=== PATIENT | female | born 1940 | race Caucasian/White ===

== ENCOUNTER → 2017-07-14 | Outpatient (CLI) | payer OTHER | LOC: FIMAGING 12:49 | PROVIDERS: ATTEND Physical Medicine & Rehabilitation | DX: M50.321 Other cervical disc degeneration at C4-C5 level (principal); M46.92 Unspecified inflammatory spondylopathy, cervical region; M48.02 Spinal stenosis, cervical region; M47.812 Spondylosis without myelopathy or radiculopathy, cervical region ==

== ENCOUNTER → 2017-08-17 | Outpatient (CLI) | payer OTHER | LOC: FIMAGING 10:01 | PROVIDERS: ATTEND Nurse Practitioner | DX: S12.001A Unspecified nondisplaced fracture of first cervical vertebra, initial encounter for closed fracture (principal); M50.31 Other cervical disc degeneration, high cervical region; M46.92 Unspecified inflammatory spondylopathy, cervical region; M48.02 Spinal stenosis, cervical region; M46.93 Unspecified inflammatory spondylopathy, cervicothoracic region ==

== ENCOUNTER → 2017-12-22 | Outpatient (CLI) | payer OTHER | LOC: FIMAGING 15:01 | PROVIDERS: ATTEND Nurse Practitioner | DX: Z98.1 Arthrodesis status (principal); M43.17 Spondylolisthesis, lumbosacral region; M48.07 Spinal stenosis, lumbosacral region; M51.87 Other intervertebral disc disorders, lumbosacral region ==

== ENCOUNTER 2018-05-09 18:44 | Observation (INO) | payer OTHER ==
--- NOTE | 2018-05-09 18:58 | EDPHY ---
HPI/HX/ROS/PE/MDM Narrative: CHIEF COMPLAINT: Back pain HPI: The patient is a 77 y/o female arriving from the [facility] complaining of lower back pain worse on the left side onset today. 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 She says she had a more intense Pilates training session last week followed by stair exercises and thinks her pain may be related to this. She tried a lidocaine patch without improvement. She denies urinary symptoms, vomiting, cough, fever, diarrhea. History is limited as patient is quite agitated and unwilling to cooperate in most of the history. REVIEW OF SYSTEMS: A comprehensive 10 system review of systems is otherwise negative aside from elements mentioned in the history of present illness. PMH: Basal ganglia hemorrhage with aphasia and dysphasia, Josy syndrome, hypertension, anxiety, depression, thoracic aortic aneurysm with aortic regurgitation, PEG tube, aspiration pneumonia Prior medical records reviewed including admission 07/19/14 for Josy syndrome. SOCIAL HISTORY: Lives at the [facility]. Retired. Single. PHYSICAL EXAM: General:Patient is alert, agitated. ENT:Eyes are normal to inspection. ENT inspection normal. Neck: Normal inspection. Full range of motion. Respiratory:No respiratory distress. Breath sounds normal bilaterally. Cardiovascular: Regular rate and rhythm. Strong peripheral pulses. Normal cap refill. Abdomen:The abdomen is nontender to palpation. There are no peritoneal signs. Back: Normal to inspection. No tenderness to palpation. Skin: Normal color. No rash. Warm and dry. Extremities: Normal appearance. Full range of motion. Neuro: Oriented x3. Normal motor function. Normal sensory function. ED Course: This is a hostile and rude 77 y/o female with a history of a hemorrhage basal ganglia stroke and Josy syndrome who presents with lower back pain worse on the left side in the setting of strenuous work out last week. Exam is unremarkable. Plan for lumbar spine x-ray and UA. Patient has refused UA, x-ray, and pain mediation. Patient consented to lumbar spine x-ray, which showed degenerative changes, nothing acute. RN has contacted every number listed under the patient's emergency contacts and has been unable to reach anyone. The patient is continuing to refuse any interventions, but also does not want to go home. Reassessed patient and discussed options. She says she can't get up out of bed and cannot return home. She wants to be admitted to the hospital. She consents to an IV for blood work. She has still be unwilling to provide a urine sample. Spoke with hospitalist service. Dr. Bender accepts admission. MDM: This was a challenging patient encounter. The patient presents with low back pain, but has been very hostile to myself and staff, not letting us do really any testing other than an X-ray and not complying with detailed exam or history. Her somewhat unusual affect makes me wonder if this is an acute change in mental status. Unfortunately, we have been unable to contact any of her listed next of kin or staff at the [facility] to determine baseline. It is unclear to me if patient even has decisional capacity. As such , patient will need to be admitted overnight for pain control and to figure out her social situation. - Data Points Imaging Results: Imaging Impressions Lumbar Spine X-Ray 05/09/18 19:09 Impression: 1. Postoperative features following arthrodesis at L4-S1, unchanged from 2017, with accompanying degenerative features, as-detailed. There does not appear to be any evidence of hardware loosening. 2. Advanced degenerative change involving the sacroiliac joints. Imaging: I viewed and interpreted images myself Laboratory Results: Laboratory Results 05/09/18 22:05 05/09/18 05/09/18 22:05 22:05 WBC 12.72 10^3/uL H 10^3/uL (3.80-9.50) RBC 4.72 10^6/uL 10^6/uL (4.18-5.33) Hgb 14.3 g/dL g/dL (12.6-16.3) Hct 42.9 % % (38.0-47.0) MCV 90.9 fL fL (81.5-99.8) MCH 30.3 pg pg (27.9-34.1) MCHC 33.3 g/dL g/dL (32.4-36.7) RDW 13.0 % % (11.5-15.2) Plt Count 210 10^3/uL 10^3/uL (150-400) MPV 10.9 fL fL (8.7-11.7) Neut % (Auto) Pending Lymph % (Auto) Pending [place] % (Auto) Pending Eos % (Auto) Pending Baso % (Auto) Pending Nucleat RBC Rel Count Pending Absolute Neuts (auto) Pending Absolute Lymphs (auto) Pending Absolute Monos (auto) Pending Absolute Eos (auto) Pending Absolute Basos (auto) Pending Absolute Nucleated RBC Pending Immature Gran % Pending Immature Gran # Pending Platelet Estimate Pending Sodium Pending Potassium Pending Chloride Pending Carbon Dioxide Pending Anion Gap Pending BUN Pending Creatinine Pending Estimated GFR Pending Glucose Pending Calcium Pending General Time Seen by Provider: 05/09/18 18:51 Initial Vital Signs: Initial Vital Signs Temperature (C) 37.0 C 05/09/18 18:48 Heart Rate 93 05/09/18 18:48 Respiratory Rate 16 05/09/18 18:48 Blood Pressure 113/53 L 05/09/18 18:48 O2 Sat (%) 93 05/09/18 18:48 O2 Delivery Mode Room Air Allergies/Adverse Reactions: hylan G-F 20 [From Synvisc] Allergy (Intermediate, Verified 12/12/13 08:36) SWELLING NSAIDS (Non-Steroidal Anti-Inflamma [Nsaids] Allergy (Intermediate, Verified 09/22 08:36) ULCERS latex [Latex] Allergy (Mild, Verified 12/12/13 08:36) Rash desvenlafaxine succinate [From Pristiq] Allergy (Unverified 05/09/18 18:55) tizanidine HCl [From Zanaflex] Allergy (Verified 12/12/13 08:36) Home Medications: Medication Instructions Recorded Dorzolamide 2% [Trusopt 2% (*)] 1 drops OP DAILY 02/03/14 Losartan Potassium [Cozaar] 100 mg PO DAILY 02/03/14 Metoprolol Tartrate [Lopressor 25 25 mg PO BID 02/03/14 mg (*)] Timolol 0.5% [TIMOPTIC 0.5% (*)] 1 drops EACHEYE BID 02/03/14 Venlafaxine Xr [Effexor Xr 75MG 75 mg PO DAILY 02/03/14 (*)] Acetaminophen [Tylenol 325mg (*)] 650 mg PO Q4 PRN 07/20/14 Latanoprost 0.005% [Xalatan 0.005% 1 drops EACHEYE HS #0 opht.btl 07/24/14 (*)] Acetaminophen [Tylenol ES 500 mg 1,000 mg PO Q8H PRN #30 tab 05/10/18 (*)] Gabapentin [Neurontin 300 MG (*)] 300 mg PO DAILY 05/10/18 Gabapentin [Neurontin 300 MG (*)] 600 mg PO HS 05/10/18 Ibuprofen [Motrin (*)] 400 mg PO Q6HRS PRN #60 tab 05/10/18 Melatonin [Melatonin 5 mg] 5 mg PO HS PRN 05/10/18 Methylphenidate HCl [Ritalin 5mg 5 mg PO DAILY 05/10/18 (*)] Nitrofurantoin Monohyd/M-Cryst 100 mg PO BID 05/10/18 [Macrobid 100 mg Capsule] Omeprazole 20 mg PO DAILY 05/10/18 amLODIPine BESYLATE [Norvasc 5 mg 5 mg PO DAILY 05/10/18 (*)] Departure - Departure Disposition: [facility] Inpatient Acute Clinical Impression: Back pain Qualifiers: Back pain location: low back pain Chronicity: acute Back pain laterality: left Sciatica presence: unspecified whether sciatica present Qualified Code(s): M54.5 - Low back pain Condition: Fair Report Scribed for: Delbert Trujillo Report Scribed by: Yumiko Sams Date of Report: 05/09/18 Time of Report: 19:01 Physician Review and Approval Statement: Portions of this note were transcribed by an ED scribe. I personally performed the history, physical exam, and medical decision making; and confirm the accuracy of the information in the transcribed note.
[2018-05-09 22:27] LABS: PLATELET COUNT 210 10^3/uL (150-400)
[2018-05-09] MEDS ORDERED: ONDANSETRON 4 MG/2 ML VIAL IVP PRN (22:44)
[2018-05-09] MEDS ORDERED: oxyCODONE IR 5 MG TAB PO PRN (22:44)
[2018-05-09] MEDS ORDERED: ONDANSETRON DISINTEGRATING 4 MG TAB PO PRN (22:44)
[2018-05-09] MEDS ORDERED: NITROFURANTOIN MACROBID 100 MG CAP PO SCH (23:45)
[2018-05-10] MEDS: IBUPROFEN 200 MG TAB PO PRN ×2 (00:15→09:39)
[2018-05-10] MEDS: NITROFURANTOIN MACROBID 100 MG CAP PO SCH ×2 (00:15→09:40)
--- NOTE | 2018-05-10 00:23 | PDGENHP ---
History and Physical - Chief Complaint Back pain - History of Present Illness 77 yo F w/ hx of lumbar DJD s/p surgery, HTN, and CVA presents with back pain. The patient tells me she performed strenuous exercise on (pilates) and Wednesday (stairs). After her second day of exercise she began to noticed moderate to severe bilateral, lower back pain. The pain is worse when she twists. She denies radiation down her legs. She also denies bowel and bladder incontinence or leg weakness. XR in the ED shows stable spinal hardware. She is refusing opiate medications. She is unable to walk due to the pain so she is being admitted for management. Case discussed with ED physician Dr. Trujillo; records reviewed in EMR. History Information - Allergies/Home Medication List Allergies/Adverse Reactions: gluten [Gluten] Allergy (Intermediate, Unverified 05/09/18 18:55) STOMACH/BELLY/INTESTINAL PAIN hylan G-F 20 [From Synvisc] Allergy (Intermediate, Verified 12/12/13 08:36) SWELLING NSAIDS (Non-Steroidal Anti-Inflamma [Nsaids] Allergy (Intermediate, Verified 09/22 08:36) ULCERS latex [Latex] Allergy (Mild, Verified 12/12/13 08:36) Rash desvenlafaxine succinate [From Pristiq] Allergy (Unverified 05/09/18 18:55) tizanidine HCl [From Zanaflex] Allergy (Verified 12/12/13 08:36) REFINED SUGARS Allergy (Mild, Uncoded 02/09/12 14:26) BLOATS/ABDOMINAL DISTENTION LACTOSE INTOL Allergy (Unknown, Uncoded 02/09/12 14:26) Home Medications: Bethanechol Chloride [Urecholine] 50 mg PO BID 02/03/14 [Last Taken Unknown] Dorzolamide 2% [Trusopt 2% (*)] 1 drops OP DAILY 02/03/14 [Last Taken Unknown] Herbals/Supplements -Info Only 1 ea PO DAILY 02/03/14 [Last Taken Unknown] Lansoprazole [Prevacid] 30 mg PO DAILY@0700 02/03/14 [Last Taken Unknown] Losartan Potassium [Cozaar] 100 mg PO DAILY 02/03/14 [Last Taken Unknown] Metoprolol Tartrate [Lopressor 25 mg (*)] 25 mg PO BID 02/03/14 [Last Taken Unknown] Timolol 0.5% [TIMOPTIC 0.5% (*)] 1 drops EACHEYE DAILY 02/03/14 [Last Taken Unknown] Valproic Acid [Depakene 250mg/5ml Oral Liquid (*)] 250 mg PO HS 02/03/14 [Last Taken Unknown] Venlafaxine Xr [Effexor Xr 75MG (*)] 150 mg PO BID 02/03/14 [Last Taken Unknown] amLODIPine BESYLATE [Norvasc 10 mg (*)] 10 mg PO DAILY 02/03/14 [Last Taken Unknown] traZODone [traZODone 150MG (*)] 75 mg PO HS 02/03/14 [Last Taken Unknown] Acetaminophen [Tylenol 325mg (*)] 650 mg PO Q4 PRN 07/20/14 [Last Taken Unknown] Lubiprostone [Amitiza 8 mcg (RX)] 8 mcg PO BID 07/20/14 [Last Taken Unknown] Nystatin [Mycostatin 15Gm] 1 ana TP BID PRN 07/20/14 [Last Taken Unknown] I have personally reviewed and updated: family history, medical history - Past Medical History arthritis, CVA, hypertension - Surgical History Reports: spinal surgery (L4-S4 fusion 2009) - Family History Additional family history: Asked, denies - Social History Smoking Status: Former smoker Review of Systems Review of Systems: ROS: 10pt was reviewed & negative except for what was stated in HPI & below Physical Exam Physical Exam: Temp Pulse Resp BP Pulse Ox 37.0 C 79 14 135/75 H 93 05/09/18 18:48 05/09/18 23:00 05/09/18 22:00 05/09/18 23:00 05/09/18 23:00 Constitutional: appears nourished, uncomfortable Eyes: PERRL, anicteric sclera Ears, Nose, Mouth, Throat: moist mucous membranes, no oral mucosal ulcers Cardiovascular: regular rate and rhythym, systolic murmur Respiratory: no respiratory distress, clear to auscultation Gastrointestinal: normoactive bowel sounds, soft, non-tender abdomen Skin: warm, normal color Musculoskeletal: full muscle strength, muscular tenderness (Lower back) Neurologic: AAOx3, other (Expressive aphasia noted) Psychiatric: interacting appropriately, not anxious Lab Data & Imaging Review 05/09/18 22:05 05/09/18 22:05 WBC 12.72 10^3/uL (3.80-9.50) H 05/09/18 22:05 RBC 4.72 10^6/uL (4.18-5.33) 05/09/18 22:05 Hgb 14.3 g/dL (12.6-16.3) 05/09/18 22:05 Hct 42.9 % (38.0-47.0) 05/09/18 22:05 MCV 90.9 fL (81.5-99.8) 05/09/18 22:05 MCH 30.3 pg (27.9-34.1) 05/09/18 22:05 MCHC 33.3 g/dL (32.4-36.7) 05/09/18 22:05 RDW 13.0 % (11.5-15.2) 05/09/18 22:05 Plt Count 210 10^3/uL (150-400) 05/09/18 22:05 MPV 10.9 fL (8.7-11.7) 05/09/18 22:05 Neut % (Auto) 86.6 % (39.3-74.2) H 05/09/18 22:05 Lymph % (Auto) 4.2 % (15.0-45.0) L 05/09/18 22:05 [place] % (Auto) 4.6 % (4.5-13.0) 05/09/18 22:05 Eos % (Auto) 3.9 % (0.6-7.6) 05/09/18 22:05 Baso % (Auto) 0.2 % (0.3-1.7) L 05/09/18 22:05 Nucleat RBC Rel Count 0.0 % (0.0-0.2) 05/09/18 22:05 Absolute Neuts (auto) 11.02 10^3/uL (1.70-6.50) H 05/09/18 22:05 Absolute Lymphs (auto) 0.53 10^3/uL (1.00-3.00) L 05/09/18 22:05 Absolute Monos (auto) 0.59 10^3/uL (0.30-0.80) 05/09/18 22:05 Absolute Eos (auto) 0.50 10^3/uL (0.03-0.40) H 05/09/18 22:05 Absolute Basos (auto) 0.03 10^3/uL (0.02-0.10) 05/09/18 22:05 Absolute Nucleated RBC 0.00 10^3/uL (0-0.01) 05/09/18 22:05 Immature Gran % 0.5 % (0.0-1.1) 05/09/18 22:05 Immature Gran # 0.06 10^3/uL (0.00-0.10) 05/09/18 22:05 RBC/WBC/PLT Morphology TNP 05/09/18 22:05 Platelet Estimate TNP 05/09/18 22:05 Sodium 138 mEq/L (135-145) 05/09/18 22:05 Potassium 4.3 mEq/L (3.3-5.0) 05/09/18 22:05 Chloride 104 mEq/L (97-110) 05/09/18 22:05 Carbon Dioxide 24 mEq/l (22-31) 05/09/18 22:05 Anion Gap 10 mEq/L (6-14) 05/09/18 22:05 BUN 25 mg/dL (7-23) H 05/09/18 22:05 Creatinine 0.7 mg/dL (0.6-1.0) 05/09/18 22:05 Estimated GFR > 60 05/09/18 22:05 Glucose 114 mg/dL (70-100) H 05/09/18 22:05 Calcium 10.2 mg/dL (8.5-10.4) 05/09/18 22:05 Imaging Review: Imaging Impressions Lumbar Spine X-Ray 05/09/18 19:09 Impression: 1. Postoperative features following arthrodesis at L4-S1, unchanged from 2017, with accompanying degenerative features, as-detailed. There does not appear to be any evidence of hardware loosening. 2. Advanced degenerative change involving the sacroiliac joints. Assessment & Plan Assessment: 77 yo F w/ hx of lumbar DJD s/p surgery, HTN, and CVA presents with back pain. Plan: 1. Back pain - I suspect muscular strain after strenuous exercise. She denies any red flag symptoms such as bowel/bladder incontinence or leg weakness/ numbness. XR (personally reviewed/interpreted) reveals no acute findings; hardware is in stable position. She has an NSAID allergy listed but this is for hx of distant ulcers, she is agreeable to trying short course of NSAIDs. She is currently being treated for UTI, but clinical picture not currently consistent with pyelonephritis leading to back pain. - Admit for observation - Tylenol and ibuprofen PRN, patient refuses opiates - PT/OT evaluations 2. Hx of lumbar DJD - S/p L4-S4 fusion in 2009. XR performed on admission reveals stable hardware. - Acute management as above 3. Hx CVA - With resultant expressive aphasia. 4. UTI - Currently under treatment with nitrofurantoin. She denies any urinary symptoms currently and is afebrile. She is refusing repeat UA. - Continue nitrofurantoin - If infectious symptoms arise, would persuade patient to re-evaluate urine 5. HTN - Continue home medications pending reconciliation. Diet - Regular Code - Full Ppx - LMWH Dispo - Admit under observation status
[2018-05-10 04:49] LABS: PLATELET COUNT 210 10^3/uL (150-400)
[2018-05-10] MEDS: ACETAMINOPHEN 500 MG TAB PO PRN ×2 (05:25→13:55)
[2018-05-10] MEDS ORDERED: ENOXAPARIN 40 MG/0.4 ML SYR SC SCH (09:00)
[2018-05-10] MEDS ORDERED: NITROFURANTOIN MACROBID 100 MG CAP PO SCH (12:15)
[2018-05-10] MEDS ORDERED: amLODIPine BESYLATE 5 MG TAB PO SCH (12:15)
[2018-05-10] MEDS ORDERED: METOPROLOL TARTRATE 25 MG TAB PO SCH (12:15)
[2018-05-10] MEDS ORDERED: VENLAFAXINE XR 75 MG CAP PO SCH (12:15)
[2018-05-10] MEDS ORDERED: DORZOLAMIDE 2% OPTH DROPS OP SCH (12:15)
[2018-05-10] MEDS ORDERED: GABAPENTIN 300 MG CAP PO SCH ×2 (12:15→21:00)
[2018-05-10] MEDS ORDERED: TIMOLOL 0.5% 15 ML OPHT.BTL EACHEYE SCH (12:15)
[2018-05-10] MEDS ORDERED: PANTOPRAZOLE SODIUM 40 MG TAB PO SCH (12:45)
[2018-05-10] MEDS ORDERED: LOSARTAN POTASSIUM 50 MG TAB PO SCH (12:45)
--- NOTE | 2018-05-10 13:13 | ASMTCMCOM ---
CM Note CM Note Notes: Patient plan of care reviewed in rounds. She is likely suffering a soft tissue injury and may be able to discharge later. Back pain is better s/p ibuprofen and tylenol. PT and OT pending. Lives independently at [facility]. CM available should needs arise. Plan: Likely to dc home independent. Date Signed: 05/10/2018 01:12 PM Electronically Signed By:Bernadine Sanchez RN
[2018-05-10 13:50] VITALS: BP 142/50
--- NOTE | 2018-05-10 14:28 | ASDISCHSUM ---
Discharge Information Plan Status:Home with No Needs Medically Cleared to Leave:05/10/2018 Discharge Date:05/10/2018 CM D/C Disposition:Home, Routine, Self-Care ADT D/C Disposition:Home, Routine, Self-Care Projected Discharge Date:05/10/2018 Transportation at D/C:Friend Discharge Delay Reason: Follow-Up Date:05/10/2018 Discharge Slot: Final Diagnosis: Placement Information Patient Contact Information Contact Name:GASTON Relationship: Address:[address] Work Phone: City:[place] Alternate Phone: State/Zip Code:[place] [address] Email: Financial Information Financial Class:Medicare Primary Plan Desc:MEDICARE OUTPATIENT Primary Plan Number:[id number] Secondary Plan Desc:LEONEL Secondary Plan Number:[id number] Assessment Information LACE LACE Length of stay for Answers: Less than 1 day current admission Comorbidities - select Answers: Cerebrovascular disease all that apply (CVA, TIA, aneurysms, vasc ular dementia) Other Notes: Ogilivie syndrome; HTN # of Emergency department Answers: 1-2 visits in the last 6 months Social determinants Answers: Mental health diagnosis (anxiety, depression, pers onality disorders, etc.) Score: 6 Date Signed: 05/10/2018 02:26 PM Electronically Signed By:Bernadine Sanchez RN [facility] CM Progress Note CM Note CM Note Notes: Patient plan of care reviewed in rounds. She is likely suffering a soft tissue injury and may be able to discharge later. Back pain is better s/p ibuprofen and tylenol. PT and OT pending. Lives independently at [facility]. CM available should needs arise. Plan: Likely to dc home independent. Date Signed: 05/10/2018 01:12 PM Electronically Signed By:Bernadine Sanchez RN Intervention Information Intervention Type:*RAMIRES-Signed Date of Service:05/10/2018 11:50 AM Patient Type:Observation Staff Member:Tarah Laguerre Hours: Discipline: Severity: Comment:
--- NOTE | 2018-05-10 14:29 | ASMTDCNOTE ---
Case Management Discharge Discharge Order Complete? Answers: Yes Patient to Obtain Answers: Independently Medications Transportation Arranged Answers: Other Notes: friend Date Signed: 05/10/2018 02:28 PM Electronically Signed By:Bernadine Sanchez RN
[2018-05-10] MEDS ORDERED: LATANOPROST 0.005% 2.5 ML OPHT DROPS EACHEYE SCH (21:00)
--- NOTE | 2018-05-11 04:19 | GDS ---
DISCHARGE DIAGNOSES: 1. Acute musculoskeletal low back pain. 2. Muscle spasm. 3. History of stroke with chronic aphasia. 4. Urinary tract infection. 5. Hypertension. HISTORY: Maykel Everett is a 77-year-old female who lives at the . She is very active at [employer] and recently did a Pilates class, which may have been too much because she subsequently develope d severe low back pain and presented to the emergency room. She was admitted to observation and unde ent supportive care as it was felt to be likely muscular strain and muscular spasm. She did not townsend ve any red flag symptoms such as bowel or bladder incontinence or leg weakness. She was treated with NSAIDs and Tylenol, and her pain was very easily controlled with these medications. She walked with physical therapy and did very well and was okay to go home. DISCHARGE MEDICATIONS: Please see computerized record for full detailed list. New medications: 1. Tylenol 1000 mg p.o. q.8 hours as needed. 2. Ibuprofen 400 mg p.o. q.6 hours as needed. DISCHARGE INSTRUCTIONS: Follow up with primary care. /[id number]/MODL
== END 2018-05-10 15:58 | disposition home or self-care (01) ==
LOC: EDUNIT# → F1N 22:59
PROVIDERS: ADMIT Student in an Organized Health Care Education/Training Program; ATTEND Internal Medicine
DX: M54.5 Low back pain (principal); M62.830 Muscle spasm of back; N39.0 Urinary tract infection, site not specified; I69.320 Aphasia following cerebral infarction; I69.391 Dysphagia following cerebral infarction; I10 Essential (primary) hypertension; K56.699 Other intestinal obstruction unspecified as to partial versus complete obstruction; F32.9 Major depressive disorder, single episode, unspecified; F41.9 Anxiety disorder, unspecified; I71.1 Thoracic aortic aneurysm, ruptured; I35.1 Nonrheumatic aortic (valve) insufficiency; Z87.891 Personal history of nicotine dependence; Z98.1 Arthrodesis status
CPT/HCPCS: 72100; 96372; 97161; 99285; G0378; G8978; G8979; G8980; J1650

== ENCOUNTER 2018-05-19 14:34 | Inpatient (IN) | payer OTHER ==
--- NOTE | 2018-05-19 15:04 | EDPHY ---
H & P Time Seen by Provider: 05/19/18 15:04 HPI/ROS: HPI CHIEF COMPLAINT: Low back pain. HISTORY OF PRESENT ILLNESS: 77-year-old female, presents emergency room with low back pain. She reports she has been suffering from low back pain this past week. She was recently admitted to the hospital on May 10 for low back pain. Treated conservatively. She states her back pain is got worse it is located lower thoracic upper lumbar. Does not radiate down her legs. She does use a walker to ambulate. She states the pain is increasing. She is due to see Dr. Linn in late May. She is here requesting an MRI of her back. Past Medical History: History of UTI, recent issues with low back pain, CVA with aphasia Past Surgical History: Low back surgery. Social History: Denies drugs alcohol tobacco. Lives at the [facility] Family History: Noncontributory ROS REVIEW OF SYSTEMS: 10 Systems were reviewed and negative with the exception of the elements mentioned in the history of present illness. Exam Constitutional elderly, frail, nontoxic triage nursing summary reviewed, vital signs reviewed, awake/alert. Eyes normal conjunctivae and sclera, EOMI, PERRLA. HENT normal inspection, atraumatic, moist mucus membranes, no epistaxis, neck supple/ no meningismus, no raccoon eyes. Respiratory clear to auscultation bilaterally, normal breath sounds, no respiratory distress, no wheezing. Cardiovascular rate normal, regular rhythm, no murmur, no edema, distal pulses normal. Gastrointestinal soft, non-tender, no rebound, no guarding, normal bowel sounds, no distension, no pulsatile mass. Genitourinary no CVA tenderness. Musculoskeletal back exam no significant midline pain, no midline vertebral tenderness, full range of motion, no calf swelling, no tenderness of extremities , no meningismus, good pulses, neurovascularly intact. Skin pink, warm, & dry, no rash, skin atraumatic. Neurologic awake, alert and oriented x 3, AAOx3, moves all 4 extremities equally, motor intact, sensory intact, CN II-XII intact, normal cerebellar, normal vision, normal speech. No leg weakness on exam. Psychiatric normal mood/affect. Heme/Lymph/Immune no lymphadenopathy. Differential Diagnosis: Includes but is not limited to in a particular order musculoskeletal back pain, muscle spasm, disc herniation, annular tear, nerve root compression, compression fracture Medical Decision Making: Plan for this patient IV establishment blood draw, Tylenol for pain control, urinalysis, MRI back. Re-evaluation: Patient's MRI results called to me by Dr. Campo, this shows an acute new T12 superior endplate compression fracture with retropulsion of fragments but no canal stenosis or impingement of the canal. This most likely the cause of her pain. Due to ongoing pain, compression fracture should be admitted the hospitalist service. She is a candidate for most likely kyphoplasty vertebral point. Neurosurgery Consulted: I spoke with Neurosurgery Dr. Sims, understand the patient has a compression fracture T12 superior endplate 25% height loss retropulsion of fragments. Dr. Sims to consult. The patient is neurologically intact. No leg weakness no saddle anesthesia. However due to ongoing pain should need to be admitted the hospitalist service. I spoke with Dr. Hammond who agrees to admit Source: Patient - Medical/Surgical History Hx Asthma: No Hx Chronic Respiratory Disease: No Hx Diabetes: No Hx Cardiac Disease: No Hx Renal Disease: No Hx Cirrhosis: No Hx Alcoholism: No Hx HIV/AIDS: No Hx Splenectomy or Spleen Trauma: No Other PMH: hypertension, hyperlipidemia, Hemorragic cva with dysarthria, overactive bladder, arthritis, depression, anxiety - Social History Smoking Status: Former smoker Constitutional: Initial Vital Signs Temperature (C) 36.7 C 05/19/18 15:05 Heart Rate 61 05/19/18 15:05 Respiratory Rate 18 05/19/18 15:05 Blood Pressure 140/63 H 05/19/18 15:05 O2 Sat (%) 92 05/19/18 15:05 O2 Delivery Mode Room Air Allergies/Adverse Reactions: hylan G-F 20 [From Synvisc] Allergy (Intermediate, Verified 12/12/13 08:36) SWELLING NSAIDS (Non-Steroidal Anti-Inflamma [Nsaids] Allergy (Intermediate, Verified 09/22 08:36) ULCERS latex [Latex] Allergy (Mild, Verified 12/12/13 08:36) Rash desvenlafaxine succinate [From Pristiq] Allergy (Unverified 05/09/18 18:55) tizanidine HCl [From Zanaflex] Allergy (Verified 12/12/13 08:36) Home Medications: Medication Instructions Recorded Dorzolamide 2% [Trusopt 2% (*)] 1 drop EACHEYE BID 02/03/14 Metoprolol Tartrate [Lopressor 25 25 mg PO BID 02/03/14 mg (*)] Timolol 0.5% [TIMOPTIC 0.5% (*)] 1 drops EACHEYE BID 02/03/14 Venlafaxine Xr [Effexor Xr 75MG 75 mg PO DAILY 02/03/14 (*)] Latanoprost 0.005% [Xalatan 0.005% 1 drops EACHEYE HS #0 opht.btl 07/24/14 (*)] Gabapentin [Neurontin 300 MG (*)] 300 mg PO DAILY 05/10/18 Gabapentin [Neurontin 300 MG (*)] 600 mg PO HS 05/10/18 Ibuprofen [Motrin (*)] 400 mg PO Q6HRS PRN #60 tab 05/10/18 Melatonin [Melatonin 5 mg] 5 mg PO HS PRN 05/10/18 Methylphenidate HCl [Ritalin 5mg 5 mg PO DAILY 05/10/18 (*)] Omeprazole 20 mg PO DAILY 05/10/18 amLODIPine BESYLATE [Norvasc 5 mg 5 mg PO DAILY 05/10/18 (*)] Acetaminophen [Tylenol ES 500 mg 1,000 mg PO Q8H PRN 05/19/18 (*)] Cyclobenzaprine [Cyclobenzaprine 5 mg PO DAILY PRN 05/19/18 HCl] Hydrocodone/Acetaminophen [[place] 1 tab PO Q8H PRN 05/19/18 5/325 (*)] Linaclotide [Linzess] 72 mcg PO DAILY 05/19/18 Losartan Potassium [Cozaar 25 mg 25 mg PO DAILY 05/19/18 (*)] traMADol [Ultram 50 mg (*)] 50 mg PO Q8H PRN 05/19/18 Medical Decision Making - Data Points Laboratory Results: Laboratory Results 05/19/18 15:40 05/19/18 15:40 Medications Given: Acetaminophen (Tylenol) 1,000 mg PO Q8H YUNG Stop: 11/15/18 21:59 Last Admin: 05/20/18 06:23 Dose: Not Given Amlodipine Besylate (Norvasc) 5 mg PO DAILY YUNG Stop: 11/16/18 08:59 Last Admin: 05/20/18 08:05 Dose: 5 mg Dorzolamide HCl (Trusopt 2%) [address] [facility] Stop: 11/16/18 08:59 Last Admin: 05/20/18 08:20 Dose: 1 drop Gabapentin (Neurontin) [address] [facility] Stop: 11/16/18 08:59 Last Admin: 05/20/18 08:08 Dose: 300 mg Latanoprost (Xalatan 0.005%) [address] [facility] Stop: 11/15/18 21:59 Last Admin: 05/19/18 23:33 Dose: 1 drop Losartan Potassium (Cozaar) [address] [facility] Stop: 11/16/18 08:59 Last Admin: 05/20/18 08:12 Dose: 25 mg Melatonin (Melatonin) 6 mg PO HS PRN PRN Reason: Sleep/Insomnia Stop: 11/15/18 22:12 Last Admin: 05/19/18 22:31 Dose: 6 mg Methocarbamol (Robaxin) 1,000 mg PO TID PRN PRN Reason: muscle spasm Stop: 11/15/18 21:59 Last Admin: 05/20/18 08:05 Dose: 1,000 mg Metoprolol Tartrate (Lopressor) [address] [facility] Stop: 11/16/18 08:59 Last Admin: 05/20/18 08:11 Dose: 25 mg Miscellaneous Information (Patch Removal) 1 ea TD DAILY YUNG Stop: 11/16/18 08:59 Last Admin: 05/20/18 08:20 Dose: Not Given Miscellaneous Medication (Icy Hot Lidocaine/Menthol 4%/1% Patch) 1 patch TD DAILY@2100 [facility] Stop: 11/15/18 21:59 Last Admin: 05/19/18 21:58 Dose: 1 patch Miscellaneous Medication (Linaclotide [Linzess]) [address] [facility] Stop: 11/16/18 08:59 Last Admin: 05/20/18 08:21 Dose: Not Given Oxycodone HCl (Oxycodone Ir) 5 - 10 mg PO Q3HRS PRN PRN Reason: Pain, Severe Able to Take PO Stop: 05/29/18 21:14 Last Admin: 05/20/18 09:57 Dose: 10 mg Pantoprazole Sodium (Protonix) 40 mg PO DAILY YUNG Stop: 11/16/18 08:59 Last Admin: 05/20/18 08:11 Dose: 40 mg Timolol Maleate (Timoptic 0.5%) 1 drops EACHEYE BID YUNG Stop: 11/16/18 08:59 Last Admin: 05/20/18 08:23 Dose: 1 drop Venlafaxine HCl (Effexor Xr) 75 mg PO DAILY YUNG Stop: 11/16/18 08:59 Last Admin: 05/20/18 08:11 Dose: 75 mg Discontinued Medications Acetaminophen (Tylenol) 1,000 mg PO EDNOW ONE Stop: 05/19/18 15:23 Last Admin: 05/19/18 16:10 Dose: 1,000 mg Fentanyl (Sublimaze) 50 mcg IVP ONCE ONE Stop: 05/19/18 20:24 Last Admin: 05/19/18 20:29 Dose: 50 mcg Sodium Chloride (Ns) 500 mls @ 0 mls/hr IV ONCE ONE PRN Reason: Wide Open Stop: 05/19/18 15:23 Last Admin: 05/19/18 16:10 Dose: 500 mls Departure - Departure Disposition: [facility] Inpatient Acute Clinical Impression: Back pain Qualifiers: Back pain location: low back pain Chronicity: acute Back pain laterality: midline Sciatica presence: without sciatica Qualified Code(s): M54.5 - Low back pain Compression fracture of thoracic vertebra Qualifiers: Encounter type: initial encounter Fracture type: closed Qualified Code(s): S22.000A - Wedge compression fracture of unspecified thoracic vertebra, initial encounter for closed fracture Condition: Fair
[2018-05-19] MEDS ORDERED: ACETAMINOPHEN 500 MG TAB PO ONE (15:22)
[2018-05-19] MEDS ORDERED: NS 500 ML IV ONE (15:22)
[2018-05-19 15:48] LABS: PLATELET COUNT 278 10^3/uL (150-400)
--- NOTE | 2018-05-19 18:27 | ASMTCMCOM ---
CM Note CM Note Notes: Pt presented to the ED for chronic low back pain and requesting an MRI. Pt was recently d/c'd from [facility] on 05/10/18 after having been admitted for low back pain, treated conservatively and d/c'd home. Pt lives in Independent Living at [facility]. 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 Pt uses a walker to ambulate. Pt has an appt w/Dr Linn in late May. Exact DC needs TBD. CM to follow. Date Signed: 05/19/2018 06:26 PM Electronically Signed By:Lacey Swartz RN
[2018-05-19] MEDS ORDERED: fentaNYL 100 MCG/2 ML INJ IVP ONE (20:23)
[2018-05-19] MEDS ORDERED: fentaNYL 100 MCG/2 ML INJ ONE (20:24)
[2018-05-19] MEDS ORDERED: HYDROCODONE/APAP 5/325 TAB PO PRN (21:15)
[2018-05-19] MEDS ORDERED: ONDANSETRON DISINTEGRATING 4 MG TAB PO PRN (21:15)
[2018-05-19] MEDS ORDERED: ONDANSETRON 4 MG/2 ML VIAL IVP PRN (21:15)
[2018-05-19] MEDS ORDERED: ACETAMINOPHEN 325 MG TAB PO PRN (21:15)
--- NOTE | 2018-05-19 21:20 | PDGENHP ---
History and Physical - Chief Complaint back pain - History of Present Illness 77 yo female with h/o CVA, htn, and DJD s/p lumbar spine surgery presents to ED with severe back pain. She was admitted last week for similar concern. Her symptoms improved with tylenol and nsaids. She went to another pilates class and had increased pain afterwards. Then, she climbed some stairs and the pain became severe. Pain is in thoracolumbar region. She denies LE weakness or burning. No bowel or bladder incontinence. Due to intractable pain, she is admitted for further management. History Information - Allergies/Home Medication List Allergies/Adverse Reactions: hylan G-F 20 [From Synvisc] Allergy (Intermediate, Verified 12/12/13 08:36) SWELLING NSAIDS (Non-Steroidal Anti-Inflamma [Nsaids] Allergy (Intermediate, Verified 09/22 08:36) ULCERS latex [Latex] Allergy (Mild, Verified 12/12/13 08:36) Rash desvenlafaxine succinate [From Pristiq] Allergy (Unverified 05/09/18 18:55) tizanidine HCl [From Zanaflex] Allergy (Verified 12/12/13 08:36) Home Medications: Dorzolamide 2% [Trusopt 2% (*)] 1 drop EACHEYE BID 02/03/14 [Last Taken 09:00] Metoprolol Tartrate [Lopressor 25 mg (*)] 25 mg PO BID 02/03/14 [Last Taken 02/26 09:00] Timolol 0.5% [TIMOPTIC 0.5% (*)] 1 drops EACHEYE BID 02/03/14 [Last Taken 09:00] Venlafaxine Xr [Effexor Xr 75MG (*)] 75 mg PO DAILY 02/03/14 [Last Taken ] Gabapentin [Neurontin 300 MG (*)] 300 mg PO DAILY 05/10/18 [Last Taken 05/19/18] Gabapentin [Neurontin 300 MG (*)] 600 mg PO HS 05/10/18 [Last Taken 05/18/18] Melatonin [Melatonin 5 mg] 5 mg PO HS PRN 05/10/18 [Last Taken 05/18/18] Methylphenidate HCl [Ritalin 5mg (*)] 5 mg PO DAILY 05/10/18 [Last Taken ] Omeprazole 20 mg PO DAILY 05/10/18 [Last Taken 05/19/18] amLODIPine BESYLATE [Norvasc 5 mg (*)] 5 mg PO DAILY 05/10/18 [Last Taken ] Acetaminophen [Tylenol ES 500 mg (*)] 1,000 mg PO Q8H PRN 05/19/18 [Last Taken Unknown] Cyclobenzaprine [Cyclobenzaprine HCl] 5 mg PO DAILY PRN 05/19/18 [Last Taken Unknown] Hydrocodone/Acetaminophen [[place] 5/325 (*)] 1 tab PO Q8H PRN 05/19/18 [Last Taken Unknown] Linaclotide [Linzess] 72 mcg PO DAILY 05/19/18 [Last Taken 05/19/18] Losartan Potassium [Cozaar 25 mg (*)] 25 mg PO DAILY 05/19/18 [Last Taken ] traMADol [Ultram 50 mg (*)] 50 mg PO Q8H PRN 05/19/18 [Last Taken Unknown] I have personally reviewed and updated: family history, medical history, social history, surgical history - Past Medical History arthritis, CVA, hypertension Additional medical history: DJD - Surgical History Reports: spinal surgery (L4-S4 fusion 2009) - Family History Additional family history: Asked, denies - Social History Smoking Status: Former smoker Alcohol Use: None Drug Use: None Review of Systems Review of Systems: ROS: 10pt was reviewed & negative except for what was stated in HPI & below Physical Exam Physical Exam: Temp Pulse Resp BP Pulse Ox 36.4 C 64 16 144/65 H 93 05/19/18 21:02 05/19/18 21:02 05/19/18 21:02 05/19/18 21:02 05/19/18 21:02 Constitutional: no apparent distress Eyes: PERRL Ears, Nose, Mouth, Throat: moist mucous membranes Cardiovascular: regular rate and rhythym Respiratory: no respiratory distress, clear to auscultation Gastrointestinal: normoactive bowel sounds, soft, non-tender abdomen Skin: warm Musculoskeletal: full muscle strength Neurologic: AAOx3, other (neg pronator drift, no facial droop, aphasia noted ( chronic per chart review)) Psychiatric: interacting appropriately, agitated Lab Data & Imaging Review 05/19/18 15:40 05/19/18 15:40 WBC 10.58 10^3/uL (3.80-9.50) H 05/19/18 15:40 RBC 4.22 10^6/uL (4.18-5.33) 05/19/18 15:40 Hgb 12.5 g/dL (12.6-16.3) L 05/19/18 15:40 Hct 37.9 % (38.0-47.0) L 05/19/18 15:40 MCV 89.8 fL (81.5-99.8) 05/19/18 15:40 MCH 29.6 pg (27.9-34.1) 05/19/18 15:40 MCHC 33.0 g/dL (32.4-36.7) 05/19/18 15:40 RDW 12.9 % (11.5-15.2) 05/19/18 15:40 Plt Count 278 10^3/uL (150-400) 05/19/18 15:40 MPV 10.3 fL (8.7-11.7) 05/19/18 15:40 Neut % (Auto) 60.3 % (39.3-74.2) 05/19/18 15:40 Lymph % (Auto) 15.6 % (15.0-45.0) 05/19/18 15:40 [place] % (Auto) 6.2 % (4.5-13.0) 05/19/18 15:40 Eos % (Auto) 16.1 % (0.6-7.6) H 05/19/18 15:40 Baso % (Auto) 0.9 % (0.3-1.7) 05/19/18 15:40 Nucleat RBC Rel Count 0.0 % (0.0-0.2) 05/19/18 15:40 Absolute Neuts (auto) 6.39 10^3/uL (1.70-6.50) 05/19/18 15:40 Absolute Lymphs (auto) 1.65 10^3/uL (1.00-3.00) 05/19/18 15:40 Absolute Monos (auto) 0.66 10^3/uL (0.30-0.80) 05/19/18 15:40 Absolute Eos (auto) 1.70 10^3/uL (0.03-0.40) H 05/19/18 15:40 Absolute Basos (auto) 0.09 10^3/uL (0.02-0.10) 05/19/18 15:40 Absolute Nucleated RBC 0.00 10^3/uL (0-0.01) 05/19/18 15:40 Immature Gran % 0.9 % (0.0-1.1) 05/19/18 15:40 Immature Gran # 0.09 10^3/uL (0.00-0.10) 05/19/18 15:40 Sodium 139 mEq/L (135-145) 05/19/18 15:40 Potassium 4.4 mEq/L (3.3-5.0) 05/19/18 15:40 Chloride 103 mEq/L (97-110) 05/19/18 15:40 Carbon Dioxide 29 mEq/l (22-31) 05/19/18 15:40 Anion Gap 7 mEq/L (6-14) 05/19/18 15:40 BUN 31 mg/dL (7-23) H 05/19/18 15:40 Creatinine 0.7 mg/dL (0.6-1.0) 05/19/18 15:40 Estimated GFR > 60 05/19/18 15:40 Glucose 90 mg/dL (70-100) 05/19/18 15:40 Calcium 9.8 mg/dL (8.5-10.4) 05/19/18 15:40 Assessment & Plan Assessment: Acute back pain 2/2 T12 compression fracture and lumbar HNP - admit for pain control, PT/OT. IR consult in am for consideration of T12 kyphoplasty (NPO at midnight). Recommend outpt dexascan. Also, contact pt's neurosurgeon in am, Dr. Paras Linn, who did her previous lumbar spine surgery. H/O CVA - chronic aphasia, not on anti-platelet or statin, would hold the former anyway for possible procedure Hypertension - cont norvasc, losartan, metoprolol Full code Dispo - obs
[2018-05-19] MEDS: LIDOCAINE 4%/MENTHOL 1% PATCH TD SCH (21:58)
[2018-05-19] MEDS: ACETAMINOPHEN 500 MG TAB PO SCH (22:05)
[2018-05-19] MEDS ORDERED: MELATONIN 3 MG TAB PO PRN (22:13)
[2018-05-19] MEDS: oxyCODONE IR 5 MG TAB PO PRN (23:28)
[2018-05-19] MEDS: LATANOPROST 0.005% 2.5 ML OPHT DROPS EACHEYE SCH (23:33)
[2018-05-20] MEDS: oxyCODONE IR 5 MG TAB PO PRN ×6 (00:02→20:12)
[2018-05-20] MEDS: ACETAMINOPHEN 500 MG TAB PO SCH ×3 (06:23→21:55)
[2018-05-20] MEDS: METHOCARBAMOL 500 MG TAB PO PRN ×2 (08:05→18:45)
[2018-05-20] MEDS: amLODIPine BESYLATE 5 MG TAB PO SCH (08:05)
[2018-05-20] MEDS: GABAPENTIN 300 MG CAP PO SCH ×2 (08:08→20:12)
[2018-05-20] MEDS: METOPROLOL TARTRATE 25 MG TAB PO SCH ×2 (08:11→20:12)
[2018-05-20] MEDS: VENLAFAXINE XR 75 MG CAP PO SCH (08:11)
[2018-05-20] MEDS: PANTOPRAZOLE SODIUM 40 MG TAB PO SCH (08:11)
[2018-05-20] MEDS: LOSARTAN POTASSIUM 25 MG TAB PO SCH (08:12)
[2018-05-20] MEDS: PATCH REMOVAL 1 EA PATCH TD SCH (08:20)
[2018-05-20] MEDS: DORZOLAMIDE 2% OPTH DROPS EACHEYE SCH ×2 (08:20→20:13)
[2018-05-20] MEDS: Linaclotide [Linzess] 72 MCG PO SCH (08:21)
[2018-05-20] MEDS: TIMOLOL 0.5% 15 ML OPHT.BTL EACHEYE SCH ×2 (08:23→20:13)
--- NOTE | 2018-05-20 09:58 | GCON ---
DATE OF CONSULTATION: 05/20/2018 REASON FOR CONSULTATION: Low back pain, with newly diagnosed compression fracture. HOSPITAL COURSE, HISTORY AND MAJOR MEDICAL FINDINGS: The patient is a 77-year-old female who does townsend ve some confusion, who was brought into the ER with severe low back pain. She was admitted last week for similar concerns, but improved with Tylenol and NSAIDs. She does live in an assisted living [facility] and does have a history of a TBI. She does do Pilates class and had increased pain afterwards. She does not remember any particular fall. She denies any lower extremity weakness, numbness, ting ling, or pain. Denies any loss of bowel or bladder control. REVIEW OF SYSTEMS: Review of systems is negative, other than what is stated in the HPI. Please see the pertinent negatives and pertinent positives. PAST MEDICAL HISTORY: Significant for history of a CVA, hypertension, arthritis. PAST SURGICAL HISTORY: Significant for a spinal fusion by Dr. Linn in 2009. FAMILY HISTORY: Noncontributory. SOCIAL HISTORY: Patient is a former smoker. She does live in an assisted living facility. She does not drink any alcohol or use illicit drugs. ALLERGIES: Synvisc, NSAIDs, latex, Pristiq, and Zanaflex. HOME MEDICATIONS: Please see the EMR for full detail, but her current medications listed are Effexor , Neurontin, metoprolol, Trusopt, melatonin, Ritalin, amlodipine, cyclobenzaprine, [place], Linzess, Co zaar, and Ultram. PHYSICAL EXAM: VITALS: Temp 36.7. BP is 162/64. Heart rate is 77. She is 91% on room air. GENER AL: The patient is in no acute distress. She is alert. She is oriented to self, but is frequently confused throughout the conversation and perseverates on particular details. NEUROLOGIC: She does m ove all extremities x4. She is a 5/5 and equal in her bilateral upper and bilateral lower extremitie s, including her deltoids, triceps, biceps, wrist flexors, extensors, interossei, intrinsic invoice coder, emery opsoas, hamstrings, quadriceps, plantar flexion, dorsiflexion, and EHL. Sensation is intact in bilat eral upper and bilateral lower extremities. She does have some tenderness to palpation over her lowe r thoracic/upper lumbar spine over to the right-hand side. DIAGNOSTIC REVIEW: Patient had thoracic and lumbar MRI demonstrating new compression deformity at T1 2. There is evidence of her spinal lumbar fusion from L4 to S1, without any evidence of central kori l stenosis. There is a moderate central disk protrusion at L2-3 and annular bulging at L3-4. ASSESSMENT AND PLAN: The patient is a 77-year-old female who presented to [facility] with acute low back pain. She does have evidence of an acute compression fracture at T12. Th e patient was seen both by Dr. Oropeza and myself this morning. There has already been an IR consult for kyphoplasty placed prior to our consultation. She does have midline tenderness around T12. It is reasonable for her to undergo kyphoplasty. However, given her dementia, we would want to minimize sedation for this patient. Would recommend a brace first line. If the patient is unable to tolerat e this brace when up and out of bed, then would consider kyphoplasty. Would optimize pain management . Please notify Neurosurgery if there is any change in neuromotor exam. /[id number]/MODL
--- NOTE | 2018-05-20 11:01 | ASMTCMCOM ---
CM Note CM Note Notes: CM met with pt. Pt states that she is able to meet all of her needs while living independently at the [facility]. She does not presently see a PT. PT/OT evals have been ordered. CM needs still to be determined. D/C Plan: TBD Date Signed: 05/20/2018 11:00 AM Electronically Signed By:Susy Crooks
--- NOTE | 2018-05-20 12:44 | HOSPPROG ---
Hospitalist Progress Note Assessment/Plan: 77y female with c/o back pain. First encounter, chart reviewed. D/W CM. #T12 compression fx -kypho today at 2 #Back pain -stable #Ho CVA -stable #Dispo -unclear -will likely need rehab Subjective: Up in bed. Still having pain. No other issues. Objective: Vital Signs Temp Pulse Resp BP Pulse Ox 36.9 C 62 18 95/68 L 92 05/20/18 12:00 05/20/18 12:00 05/20/18 12:00 05/20/18 12:00 05/20/18 12:00 05/19/18 05/20/18 05/21/18 05:59 05:59 05:59 Intake Total 700 Output Total 400 400 Balance 300 -400 - Physical Exam Constitutional: no apparent distress, appears nourished, uncomfortable Eyes: PERRL, anicteric sclera, EOMI Ears, Nose, Mouth, Throat: moist mucous membranes, hearing normal, ears appear normal Cardiovascular: No JVD, No tachycardia, No edema Respiratory: no respiratory distress, no rales or rhonchi, reduced air movement Gastrointestinal: normoactive bowel sounds, No tenderness, No ascites Skin: warm, normal color, No mottled Musculoskeletal: no joint effusions, pain with ROM, generalized weakness Psychiatric: not anxious, not encephalopathic, thought process linear, poor memory ICD10 Worksheet Patient Problems: Problems Problem Status Onset Basal ganglia hemorrhage Acute Hypertension Acute Josy's syndrome Acute Back pain Acute Compression fracture of thoracic vertebra Acute
--- NOTE | 2018-05-20 13:20 | PDMN ---
Medical Necessity Medical necessity: Change to IP, as of 05/20/18, per NURSE DISCHARGE & MCG MG-MD ( Musculoskeletal Disease); los >2 mn for ongoing management of T12 compression fx ; requiring kyphoplasty, pain management & therapies; comorbid advanced age, CVA
[2018-05-20] MEDS ORDERED: NS 1,000 ML IV ONE (13:50)
[2018-05-20] MEDS ORDERED: NALOXONE HCL 0.4 MG/ML INJ IVP PRN (13:50)
[2018-05-20] MEDS ORDERED: MEPERIDINE 25 MG/ML SYR IVP PRN (13:50)
[2018-05-20] MEDS ORDERED: fentaNYL 100 MCG/2 ML INJ IVP PRN (13:50)
[2018-05-20] MEDS ORDERED: DEXAMETHASONE 10 MG/ML VIAL IVP ONE (13:50)
[2018-05-20] MEDS ORDERED: MIDAZOLAM 2 MG/2 ML VIAL IVP PRN (13:50)
[2018-05-20] MEDS ORDERED: ceFAZolin 2 GM/DEXTROSE 100 ML IV ONE (13:50)
[2018-05-20] MEDS ORDERED: FLUMAZENIL 0.5 MG/5 ML MDV IVP PRN (13:50)
[2018-05-20 14:29] LABS: INR 1.08 (0.83-1.16); PROTIME(PATIENT) 14.2 SEC (12.0-15.0)
--- NOTE | 2018-05-20 14:46 | PDPROPOC ---
Sedation Plan of Care Sedation Plan of Care: vital signs stable, mental status noted, patient educated of risks, benefits, alternatives, patient can tolerate sedation ASA Classification: ASA 3 Planned drugs: fentanyl, midazolam Mallampati Score: Class 2 Mallampati Reference Image: Patient passed 3-3-2 rule?: Yes
[2018-05-20] MEDS ORDERED: BUPIVACAINE 0.5% 30 ML SDV ONE (15:00)
[2018-05-20] MEDS ORDERED: LIDOCAINE 1% 300 MG/30 ML SDV ONE (15:00)
[2018-05-20] MEDS ORDERED: NALOXONE HCL 0.4 MG/ML INJ ONE (15:44)
[2018-05-20] MEDS ORDERED: fentaNYL 100 MCG/2 ML INJ ONE (15:45)
[2018-05-20] MEDS ORDERED: MIDAZOLAM 2 MG/2 ML VIAL ONE (15:45)
[2018-05-20] MEDS ORDERED: FLUMAZENIL 0.5 MG/5 ML MDV IVP ONE (15:45)
[2018-05-20] MEDS ORDERED: DEXAMETHASONE 10 MG/ML VIAL ONE (16:24)
--- NOTE | 2018-05-20 16:43 | PDRADPN ---
Radiology Procedure Note Date of Procedure: 05/20/18 Radiologist: Maia Cordova Anesthesia: IV Sedation Pre-op Diagnosis: t12 fracture Post-op Diagnosis: same Indication: severe pain Procedure: t12 kyphoplasty Inf/Abcess present in the surg proc area at time of surgery?: No
[2018-05-20] MEDS: LATANOPROST 0.005% 2.5 ML OPHT DROPS EACHEYE SCH (20:13)
[2018-05-20] MEDS: LIDOCAINE 4%/MENTHOL 1% PATCH TD SCH (20:13)
[2018-05-20] MEDS ORDERED: MELATONIN 3 MG TAB PO PRN ×2 (21:30)
[2018-05-21] MEDS: ACETAMINOPHEN 500 MG TAB PO SCH ×3 (05:39→21:03)
[2018-05-21] MEDS: METHOCARBAMOL 500 MG TAB PO PRN ×3 (05:39→21:04)
[2018-05-21] MEDS: oxyCODONE IR 5 MG TAB PO PRN ×3 (05:39→16:18)
[2018-05-21] MEDS: VENLAFAXINE XR 75 MG CAP PO SCH (08:10)
[2018-05-21] MEDS: amLODIPine BESYLATE 5 MG TAB PO SCH (08:11)
[2018-05-21] MEDS: METOPROLOL TARTRATE 25 MG TAB PO SCH ×2 (08:11→21:03)
[2018-05-21] MEDS: GABAPENTIN 300 MG CAP PO SCH ×2 (08:11→21:03)
[2018-05-21] MEDS: PANTOPRAZOLE SODIUM 40 MG TAB PO SCH (08:12)
[2018-05-21] MEDS: Linaclotide [Linzess] 72 MCG PO SCH (08:12)
[2018-05-21] MEDS: LOSARTAN POTASSIUM 25 MG TAB PO SCH (08:12)
[2018-05-21] MEDS: TIMOLOL 0.5% 15 ML OPHT.BTL EACHEYE SCH ×2 (08:14→21:03)
[2018-05-21] MEDS: DORZOLAMIDE 2% OPTH DROPS EACHEYE SCH ×2 (08:14→21:04)
[2018-05-21] MEDS ORDERED: POLYETHYLENE GLYCOL 3350 17 GM PKT PO PRN (08:23)
[2018-05-21] MEDS ORDERED: MAGNESIUM HYDROXIDE 30 ML UDCUP PO PRN (08:23)
[2018-05-21] MEDS ORDERED: BISACODYL 10 MG SUPP PR PRN (08:23)
[2018-05-21] MEDS ORDERED: LACTULOSE 20 GM/30 ML UDCUP PO PRN (08:23)
[2018-05-21] MEDS: SENNOSIDES/DOCUSATE SODIUM TAB PO SCH ×2 (09:00→21:03)
[2018-05-21] MEDS: PATCH REMOVAL 1 EA PATCH TD SCH (09:01)
[2018-05-21] MEDS ORDERED: IBUPROFEN 200 MG TAB PO PRN (09:28)
[2018-05-21] MEDS ORDERED: LOSARTAN POTASSIUM 25 MG TAB PO SCH (09:29)
--- NOTE | 2018-05-21 09:43 | SOAPPROG ---
[facility] Progress Note Assessment/Plan: Assessment: 77 y/o F POD#1 T12 vertebroplasty, pain improved 02/18 to 11/18. Complains of mild incisional pain. Plan: 05/21/18 09:42 Continue to monitor pain Subjective: Complains of pain at incision site, but overall pain improved from 8 to . Objective: Vital Signs Temp Pulse Resp BP Pulse Ox 36.6 C 74 16 166/77 H 95 05/21/18 07:58 05/21/18 08:11 05/21/18 07:58 05/21/18 08:12 05/21/18 07:58 05/20/18 05/21/18 05/22/18 05:59 05:59 05:59 Intake Total 700 750 Output Total 400 1300 Balance 300 -550 PT 14.2 SEC (12.0-15.0) 05/20/18 14:15 INR 1.08 (0.83-1.16) 05/20/18 14:15 ICD10 Worksheet Patient Problems: Problems Problem Status Onset Back pain Acute Compression fracture of thoracic vertebra Acute Basal ganglia hemorrhage Acute Hypertension Acute Jefferson's syndrome Acute
--- NOTE | 2018-05-21 15:21 | HOSPPROG ---
Hospitalist Progress Note Assessment/Plan: 77y female with PMH previous CVA,htn, DJD s/p previous lumbar surgery c/o back pain. Admitted one week ago and discharged with conservative measures. First encounter, chart reviewed. D/W CM. #T12 compression fx -kypho POD #1 #Back pain -improved to 5/10 #Ho CVA -stable -patient at minimum should be on ASA which was added today #htn -Losartan dose increased #DVT ppx -consider Lovenox if patient continues to be inpt #Dispo -OT has seen and thinks patient can have HHC -PT eval pending likely D/C tomorrow Subjective: Pain in back better but still feels a little limited. Objective: Vital Signs Temp Pulse Resp BP Pulse Ox 97.8 F 76 16 123/54 H 93 05/21/18 11:36 05/21/18 11:36 05/21/18 11:36 05/21/18 11:36 05/21/18 11:36 05/20/18 05/21/18 05/22/18 05:59 05:59 05:59 Intake Total 700 750 Output Total 400 1300 600 Balance 300 -550 -600 PT 14.2 SEC (12.0-15.0) 05/20/18 14:15 INR 1.08 (0.83-1.16) 05/20/18 14:15 - Time Spent With Patient Time Spent with Patient: greater than 25 minutes Time Spent with Patient: Greater than 25 minutes spent on this patients care, greater than 50% of time spent counseling, educating, and coordinating care regarding the above mentioned plan. - Pending Discharge Pending Discharge Within 24 Hours: Yes Pending Discharge Date: 05/22/18 Pending Discharge Time: 11:00 - Physical Exam Constitutional: no apparent distress, appears nourished Eyes: No icteric sclera Ears, Nose, Mouth, Throat: moist mucous membranes, hearing normal Cardiovascular: regular rate and rhythym, no murmur, rub, or gallop Respiratory: no respiratory distress, no rales or rhonchi Skin: warm, normal color, other (Bandaged area over kypoplasty site) Neurologic: AAOx3, facial droop Psychiatric: interacting appropriately ICD10 Worksheet Patient Problems: Problems Problem Status Onset Back pain Acute Compression fracture of thoracic vertebra Acute Basal ganglia hemorrhage Acute Hypertension Acute [place]'s syndrome Acute
[2018-05-21] MEDS: LATANOPROST 0.005% 2.5 ML OPHT DROPS EACHEYE SCH (21:03)
[2018-05-21] MEDS: LIDOCAINE 4%/MENTHOL 1% PATCH TD SCH (21:04)
[2018-05-22] MEDS: ACETAMINOPHEN 500 MG TAB PO SCH ×2 (05:14→11:45)
[2018-05-22 08:51] VITALS: BP 111/56
[2018-05-22] MEDS ORDERED: ASPIRIN EC 81 MG TAB PO SCH (09:00)
--- NOTE | 2018-05-22 09:49 | PDIAF ---
- Diagnosis Diagnosis: T12 compression fracture/back pain Code Status: Full Code - Medication Management Discharge Medications: electronically signed and located in the Home Medication List. - Orders Services needed: Home Care, Physical Therapy, Occupational Therapy Home Care Face to Face: I certify that this patient was under my care and that I had the required [id number] encounter meeting the encounter requirements on the discharge day. My findings support the fact that the patient is homebound as defined in Home Care Face to Face Continued: CMS Chapter 7 Medicare Benefits Manual 30.1.1 , The condition of the patient is such that there exists a normal inability to leave home and consequently, leaving home would require a considerable and taxing effort. Diet Texture: Regular Texture Diet Additional Instructions: Please follow up with Dr. Herrera for your back pain this week or next week. Changes to your medicines during this hospitalization are the followin) increase to Losartan due to high blood pressure 2) aspirin daily for your history of stroke - Follow Up Care Current Providers and Referrals: Malissa Herrera MD [Primary Care Provider] - follow up in 1 week
[2018-05-22] MEDS: DORZOLAMIDE 2% OPTH DROPS EACHEYE SCH (10:09)
[2018-05-22] MEDS: TIMOLOL 0.5% 15 ML OPHT.BTL EACHEYE SCH (10:09)
[2018-05-22] MEDS: SENNOSIDES/DOCUSATE SODIUM TAB PO SCH (10:09)
[2018-05-22] MEDS: METOPROLOL TARTRATE 25 MG TAB PO SCH (10:10)
[2018-05-22] MEDS: GABAPENTIN 300 MG CAP PO SCH (10:10)
[2018-05-22] MEDS: oxyCODONE IR 5 MG TAB PO PRN (10:11)
[2018-05-22] MEDS: VENLAFAXINE XR 75 MG CAP PO SCH (10:12)
[2018-05-22] MEDS: PANTOPRAZOLE SODIUM 40 MG TAB PO SCH (10:13)
[2018-05-22] MEDS: amLODIPine BESYLATE 5 MG TAB PO SCH (10:13)
[2018-05-22] MEDS: Linaclotide [Linzess] 72 MCG PO SCH (10:41)
[2018-05-22] MEDS: PATCH REMOVAL 1 EA PATCH TD SCH (10:42)
--- NOTE | 2018-05-22 11:36 | ASMTLACE ---
LACE Length of stay for Answers: 3 days current admission Acuity / Level of Answers: Yes Care: Did the patient have an inpatient admission? Comorbidities - select Answers: Cerebrovascular disease all that apply (CVA, TIA, aneurysms, vasc ular dementia) Other Notes: HTN; HLD # of Emergency department Answers: 1-2 visits in the last 6 months Social determinants Answers: Mental health diagnosis (anxiety, depression, pers onality disorders, etc.) Score: 12 Date Signed: 05/22/2018 11:35 AM Electronically Signed By:Belen Reyes LCSW
--- NOTE | 2018-05-22 11:40 | ASDISCHSUM ---
Discharge Information Plan Status:Home with Home Health Medically Cleared to Leave:05/21/2018 Discharge Date:05/21/2018 CM D/C Disposition:Home Health Service ADT D/C Disposition:Home, Routine, Self-Care Projected Discharge Date:05/22/2018 01:00 PM Transportation at D/C:Other Discharge Delay Reason: Follow-Up Date:05/22/2018 01:00 PM Discharge Slot:2 - 12:01 pm - 18:00 pm Final Diagnosis:Compression fx Placement Information Referral Type:*Home Health Care Services Referral ID:[id number] Provider Name:[facility] [address] [facility] [address] Address 2: City:[place] Selection Factors: State:[place] Patient Contact Information Contact Name:GASTON Relationship:[facility] Address:[address] Work Phone: City:[place] Alternate Phone: State/Zip Code:[place] [address] Email: Financial Information Financial Class:Medicare Primary Plan Desc:MEDICARE INPATIENT Primary Plan Number:[id number] Secondary Plan Desc:[facility] [place] Secondary Plan Number:[id number] Assessment Information [facility] CM Progress Note CM Note CM Note Notes: Pt presented to the ED for chronic low back pain and requesting an MRI. Pt was recently d/c'd from [facility] on 05/10/18 after having been admitted for low back pain, treated conservatively and d/c'd home. Pt lives in Independent Living at [facility]. 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 Pt uses a walker to ambulate. Pt has an appt w/Dr Linn in late May. Exact DC needs TBD. to follow. Date Signed: 05/19/2018 06:26 PM Electronically Signed By:Lacey Swartz RN LACE LACE Length of stay for Answers: 3 days current admission Acuity / Level of Answers: Yes Care: Did the patient have an inpatient admission? Comorbidities - select Answers: Cerebrovascular disease all that apply (CVA, TIA, aneurysms, vasc ular dementia) Other Notes: HTN; HLD # of Emergency department Answers: 1-2 visits in the last 6 months Social determinants Answers: Mental health diagnosis (anxiety, depression, pers onality disorders, etc.) Score: 12 Date Signed: 05/22/2018 11:35 AM Electronically Signed By:Belen Reyes LCSW [facility] CM Progress Note CM Note CM Note Notes: CM met with pt. Pt states that she is able to meet all of her needs while living independently at the [facility]. She does not presently see a PT. PT/OT evals have been ordered. CM needs still to be determined. D/C Plan: TBD Date Signed: 05/20/2018 11:00 AM Electronically Signed By:Susy Crooks Case Management Discharge Plan Note Case Management Discharge Discharge Order Complete? Answers: Yes Patient to Obtain Answers: Independently Medications Transportation Arranged Answers: Other Notes: [facility] lined up [employer] will Pick (Date 05/22/2018 12:15 PM & Time) Faxed Final Orders Answers: Yes Notes: [facility] Discharge Comments Notes: [facility] to line up [employer] transport. [facility] contacted for HC. Date Signed: 05/22/2018 11:39 AM Electronically Signed By:Belen Reyes LCSW Intervention Information Intervention Type:*Incorrect Registration Date of Service:05/19/2018 12:53 PM Patient Type:Inpatient Staff Member:LM Bishop Courtney Hours: Discipline: Severity: Comment:
--- NOTE | 2018-05-22 11:40 | ASMTDCNOTE ---
Case Management Discharge Discharge Order Complete? Answers: Yes Patient to Obtain Answers: Independently Medications Transportation Arranged Answers: Other [facility] (Date 05/22/2018 12:15 PM & Time) Faxed Final Orders Answers: Yes Notes: [facility] Discharge Comments Notes: Patient has been discharged back to the [facility] to line up [employer] transport. [facility] contacted for HC. Date Signed: 05/22/2018 11:39 AM Electronically Signed By:Belen Reyes LCSW
[2018-05-22] MEDS: METHOCARBAMOL 500 MG TAB PO PRN (11:44)
--- NOTE | 2018-05-22 15:57 | GDS ---
DISCHARGE DIAGNOSES: 1. T12 compression fracture, status post kyphoplasty in this admission. 2. History of back pain. 3. History of cerebrovascular accident. 4. History of hypertension. PROCEDURES: 1. 05/19/2018, lumbar spine MRI, which found a new mild compression deformity of the superior endpla te of T12 vertebral body. 2. 05/19/2018, thoracic spine MRI, which showed a mild acute compression fracture of the T12 vertebr al body. 3. 05/19/2018, kyphoplasty. CONSULTATIONS: 1. Neurosurgery. 2. Interventional Radiology. BRIEF HISTORY: Please see dictated H and P by Dr. Nicol Hammond for complete details. In brief, the patient is a 77-year-old female with a history of CVA, hypertension, DJD with previous lumbar surger y who presented with back pain. She had been admitted a week ago and treated with conservative measu res. She returned with more pain. HOSPITAL COURSE: 1. T12 compression fracture. She has ambulated with PT and OT. Recommendations have been made for home care. She is being discharged back to [facility] with home care. She has been given analgesia to include a short course of Oxy IR. She is also to take Tylenol and ibuprofen spar ingly. 2. Back pain. This has been an acute on chronic issue for her. Pain level is down to a 2/10 on day of discharge. 3. History of CVA. An aspirin was started and she is tolerating this well. She may continue this. No statin has been initiated, but can be worked up in an outpatient setting. 4. Hypertension. Her blood pressures were mildly elevated throughout her hospitalization. Her losa rtan dose was increased. PHYSICAL EXAM: VITAL SIGNS: On day of discharge, blood pressure of 111/56, heart rate 68, respirati ons 16, O2 saturation 93% on room air, temp of 98.3 degrees Fahrenheit. GENERAL: She is a very plea alecia female in no apparent distress. HEAD/NECK: Normocephalic, atraumatic. HEART: Regular rate an d rhythm. LUNGS: Clear. BACK/SPINE: There is a bandaged area at the site of her kyphoplasty. RESULTS PENDING: None. DIET: Per previous. ACTIVITY: Per home OT and PT. DISCHARGE INSTRUCTIONS: Follow up with Dr. Herrera in 1 week's time. DISCHARGE MEDICATIONS: Please see medication reconciliation for complete detail. /[id number]/MODL
[2018-05-23] MEDS ORDERED: LIDOCAINE 1% 300 MG/30 ML SDV ONE (13:00)
== END 2018-05-22 12:21 | disposition home or self-care (01) | DRG 517 ==
LOC: F3N 20:55
PROVIDERS: ADMIT Hospitalist; ATTEND Hospitalist
DX: M48.54XA Collapsed vertebra, not elsewhere classified, thoracic region, initial encounter for fracture (principal); I69.920 Aphasia following unspecified cerebrovascular disease; I10 Essential (primary) hypertension; Z87.891 Personal history of nicotine dependence; Z98.1 Arthrodesis status; Z87.440 Personal history of urinary (tract) infections
CPT/HCPCS: 97116-GP; 97161-GP; 97165-GO; 97530-GP; 97535-GO; G0378; G8978-GP-CI; G8979-GP-CI; G8980-GP-CI; G8987-GO-CI; G8988-GO-CI; G8989-GO-CI; J0690; J1100; J2250; J2310; J3010